=== PATIENT | male | born 1990 | race Caucasian/White ===

== ENCOUNTER 2023-12-04 07:34 | Inpatient (IN) | payer MEDICAID, SELFPAY ==
--- NOTE | 2023-12-04 07:51 | W.ED.PSYCHS ---
Documented by User: Mckinley Oneal MD 12/04/23 10:33 HPI - Psych General: Chief Complaint: Psychiatric Symptoms Stated Complaint: MHE Time Seen by Provider: 12/04/23 07:42 Related Data Home Medications Medication Instructions Recorded Confirmed No Known Home Medications 12/04/23 12/04/23 Allergies Allergy/AdvReac Type Severity Reaction Status Date / Time No Known Allergies Allergy Verified 12/04/23 19:51 Review of Systems Const: Denies: fever(s), chills, body aches or change in appetite Eyes: Denies: blurry vision or eye discomfort ENMT: Denies: throat pain or dental pain Card: Denies: chest pain Resp: Denies: dyspnea GI: Denies: abdominal pain, nausea, vomiting or diarrhea Musc: Denies: neck pain or back pain Skin/Breast: Denies: rash Neuro: Denies: headache(s) Psych: Reports: paranoia Physical Exam Const: COMMON NORMALS: patient oriented x3 and healthy appearing GENERAL APPEARANCE: disheveled HENMT: COMMON NORMALS: normocephalic and atraumatic HEAD & SCALP: normocephalic and atraumatic Eye: COMMON NORMALS: Equal, round and reactive pupils present and EOMs intact bilaterally PUPIL: Yes Equal, round and reactive pupils present Neck/C-Spine: COMMON NORMALS: full ROM and supple Chest: COMMONS NORMALS: normal inspection of the chest Resp: COMMON NORMALS: normal respiratory effort, No retractions, No use of accessory muscles and clear to auscultation bilaterally AUSCULTATION: clear to auscultation bilaterally Cardio: COMMON NORMALS: regular rate, regular rhythm and No murmurs present (Cardio) RATE: regular rate RHYTHM: regular rhythm GI: COMMON NORMALS: Normal to inspection, nondistended, normoactive bowel sounds present, Soft to palpation, non-tender and no masses PALPATION: Yes Soft to palpation Extremity: COMMON NORMALS: normal to inspection and full ROM Neuro: COMMON NORMALS: patient oriented x3, moves all extremities and no focal motor deficits Psych: ATTITUDE: Yes paranoid THOUGHT PROCESS: disorganized THOUGHT CONTENT: Yes Hallucination(s) present Skin: COMMON NORMALS: no rashes or lesions noted and no wounds GENERAL SKIN EXAM: no rashes or lesions noted Course Vital Signs: Vital signs: Vital Signs Temperature 97.5 F L 12/04/23 21:31 Pulse Rate 103 H 12/04/23 21:31 Respiratory Rate 18 12/04/23 21:31 Blood Pressure 124/94 12/04/23 21:31 Pulse Oximetry 99 12/04/23 21:31 Oxygen Delivery Me thod Room Air 12/04/23 20:05 MDM - Psych Medical Records I reviewed the patient's medical records. Lab Data I reviewed the patient's lab results. 12/04/23 10:35 12/04/23 10:35 Laboratory Results WBC 13.69 10^3/uL (3.29-11.43) H 12/04/23 10:35 RBC 4.43 10^6/uL (3.85-5.65) 12/04/23 10:35 Hgb 14.10 g/dL (11.27-16.99) 12/04/23 10:35 Hct 42.5 % (37-53) 12/04/23 10:35 MCV 95.9 fl (82-101) 12/04/23 10:35 MCH 31.8 pg (27-33) 12/04/23 10:35 MCHC 33.2 g/dL (30-55) 12/04/23 10:35 RDW 12.9 % (12.1-15.1) 12/04/23 10:35 Plt Count 242 10^3/cmm (157-399) 12/04/23 10:35 MPV 10.0 fL (7.4-10.4) 12/04/23 10:35 Neut % (Auto) 84.6 % 12/04/23 10:35 Lymph % (Auto) 8.6 % 12/04/23 10:35 Barrow % (Auto) 5.9 % 12/04/23 10:35 Eos % (Auto) 0.0 % 12/04/23 10:35 Baso % (Auto) 0.2 % 12/04/23 10:35 Neut # (Auto) 11.58 10^3/uL (1.8-7.7) H 12/04/23 10:35 Lymph # (Auto) 1.2 10^3/uL (0.8-4.8) 12/04/23 10:35 Barrow # (Auto) 0.8 10^3/uL (0.2-0.9) 12/04/23 10:35 Eos # (Auto) 0.0 10^3/uL (0.0-0.8) 12/04/23 10:35 Baso # (Auto) 0.0 10^3/uL (0.0-0.1) 12/04/23 10:35 Nucleated RBC % (auto) 0 % 12/04/23 10:35 Nucleated RBCs # 0.0 /100WBC 12/04/23 10:35 Sodium 142 mmol/L (136-145) 12/04/23 10:35 Potassium 3.4 mmol/L (3.5-5.1) L 12/04/23 10:35 Chloride 105 mmol/L (98-107) 12/04/23 10:35 Carbon Dioxide 22 mmol/L (22-29) 12/04/23 10:35 Anion Gap 18.4 (5-19) 12/04/23 10:35 BUN 18 mg/dL (6-20) 12/04/23 10:35 Creatinine 0.9 mg/dL (0.7-1.2) 12/04/23 10:35 GFR Calculation 96.6 mL/min (90-130) 12/04/23 10:35 Glucose 114 mg/dL (65-115) 12/04/23 10:35 Calculated Osmolality 297 mOsm/kg (285-295) H 12/04/23 10:35 Calcium 8.8 mg/dL (8.5-10.5) 12/04/23 10:35 Total Bilirubin 0.4 mg/dL (0.15-1.2) 12/04/23 10:35 AST 32 U/L (0-40) 12/04/23 10:35 ALT 15 U/L (0-41) 12/04/23 10:35 Alkaline Phosphatase 97 U/L (40-130) 12/04/23 10:35 Total Protein 6.7 g/dL (6.6-8.7) 12/04/23 10:35 Albumin 4.4 g/dL (3.5-5.2) 12/04/23 10:35 Globulin 2.3 g/dL (1.3-4.6) 12/04/23 10:35 Salicylates < 0.3 mg/dL (3-10) L 12/04/23 10:35 Urine Opiates Screen Positive ng/mL (Negative) H 12/04/23 10:58 Acetaminophen < 5.0 ug/mL (10-30) L 12/04/23 10:35 Ur Barbiturates Screen Negative ng/mL (Negative) 12/04/23 10:58 Ur Phencyclidine Scrn Negative ng/mL (Negative) 12/04/23 10:58 Ur Amphetamines Screen Positive ng/mL (Negative) H 12/04/23 10:58 U Benzodiazepines Scrn Negative ng/mL (Negative) 12/04/23 10:58 Urine Cocaine Screen Negative ng/mL (Negative) 12/04/23 10:58 U Marijuana (THC) Screen Positive ng/mL (Negative) H 12/04/23 10:58 Ethyl Alcohol < 10 mg/dL (0-10) 12/04/23 10:35 Influenza Type A Ag negative (Negative) 12/04/23 09:49 Influenza Type B Ag negative (Negative) 12/04/23 09:49 RSV Antigen Negative (Negative) 12/04/23 09:49 SARS-CoV-2 Ag (Rapid) negative (Negative) 12/04/23 09:49 No radiology studies performed this visit EKG Data EKG 1: I personally reviewed and interpreted this EKG as follows: EKG interpretation date: 12/04/23 EKG interpretation time: 09:51 Interpretation: nsr hr [address] or t wave qrs 95 qtc 443 Discharge Plan Discharge Patient Disposition: Admitted As Inpatient Admit Provider: Uziel Batista Clinical Impression: Acute psychosis Condition: Stable Coding Level of Care Code ED Patcher Wood Welder for Chg Fwd Documented by User: Lazaro Foreman DO 12/05/23 01:28 HPI - Psych General: Chief Complaint: Psychiatric Symptoms Stated Complaint: MHE Time Seen by Provider: 12/04/23 07:42 History of Present Illness: 33-year-old male patient exhibiting symptoms of psychosis on arrival. He is hallucinating, agitated, delusional. He required medication for agitation. Related Data Home Medications Medication Instructions Recorded Confirmed No Known Home Medications 12/04/23 12/04/23 Allergies Allergy/AdvReac Type Severity Reaction Status Date / Time No Known Allergies Allergy Verified 12/04/23 19:51 Course Vital Signs: Vital signs: Vital Signs Temperature 97.5 F L 12/04/23 21:31 Pulse Rate 103 H 12/04/23 21:31 Respiratory Rate 18 12/04/23 21:31 Blood Pressure 124/94 12/04/23 21:31 Pulse Oximetry 99 12/04/23 21:31 Oxygen Delivery Me thod Room Air 12/04/23 20:05 MDM - Psych Medical Decision Making 33-year-old male checked out at shift change. Medically he is quite stable. He presents with psychosis, agitation. He has been placed under 96-hour hold by the previous physician due to psychosis and agitation. Medically he has been stable. His drug screen is positive for amphetamines and marijuana. Alcohol level is less than 10. Since initial injections for agitation here, he has been calm and cooperative. He has been here 11.5 hours without further need for repeat medication for agitation. Lab Data 12/04/23 10:35 12/04/23 10:35 Laboratory Results WBC 13.69 10^3/uL (3.29-11.43) H 12/04/23 10:35 RBC 4.43 10^6/uL (3.85-5.65) 12/04/23 10:35 Hgb 14.10 g/dL (11.27-16.99) 12/04/23 10:35 Hct 42.5 % (37-53) 12/04/23 10:35 MCV 95.9 fl (82-101) 12/04/23 10:35 MCH 31.8 pg (27-33) 12/04/23 10:35 MCHC 33.2 g/dL (30-55) 12/04/23 10:35 RDW 12.9 % (12.1-15.1) 12/04/23 10:35 Plt Count 242 10^3/cmm (157-399) 12/04/23 10:35 MPV 10.0 fL (7.4-10.4) 12/04/23 10:35 Neut % (Auto) 84.6 % 12/04/23 10:35 Lymph % (Auto) 8.6 % 12/04/23 10:35 Barrow % (Auto) 5.9 % 12/04/23 10:35 Eos % (Auto) 0.0 % 12/04/23 10:35 Baso % (Auto) 0.2 % 12/04/23 10:35 Neut # (Auto) 11.58 10^3/uL (1.8-7.7) H 12/04/23 10:35 Lymph # (Auto) 1.2 10^3/uL (0.8-4.8) 12/04/23 10:35 Barrow # (Auto) 0.8 10^3/uL (0.2-0.9) 12/04/23 10:35 Eos # (Auto) 0.0 10^3/uL (0.0-0.8) 12/04/23 10:35 Baso # (Auto) 0.0 10^3/uL (0.0-0.1) 12/04/23 10:35 Nucleated RBC % (auto) 0 % 12/04/23 10:35 Nucleated RBCs # 0.0 /100WBC 12/04/23 10:35 Sodium 142 mmol/L (136-145) 12/04/23 10:35 Potassium 3.4 mmol/L (3.5-5.1) L 12/04/23 10:35 Chloride 105 mmol/L (98-107) 12/04/23 10:35 Carbon Dioxide 22 mmol/L (22-29) 12/04/23 10:35 Anion Gap 18.4 (5-19) 12/04/23 10:35 BUN 18 mg/dL (6-20) 12/04/23 10:35 Creatinine 0.9 mg/dL (0.7-1.2) 12/04/23 10:35 GFR Calculation 96.6 mL/min (90-130) 12/04/23 10:35 Glucose 114 mg/dL (65-115) 12/04/23 10:35 Calculated Osmolality 297 mOsm/kg (285-295) H 12/04/23 10:35 Calcium 8.8 mg/dL (8.5-10.5) 12/04/23 10:35 Total Bilirubin 0.4 mg/dL (0.15-1.2) 12/04/23 10:35 AST 32 U/L (0-40) 12/04/23 10:35 ALT 15 U/L (0-41) 12/04/23 10:35 Alkaline Phosphatase 97 U/L (40-130) 12/04/23 10:35 Total Protein 6.7 g/dL (6.6-8.7) 12/04/23 10:35 Albumin 4.4 g/dL (3.5-5.2) 12/04/23 10:35 Globulin 2.3 g/dL (1.3-4.6) 12/04/23 10:35 Salicylates < 0.3 mg/dL (3-10) L 12/04/23 10:35 Urine Opiates Screen Positive ng/mL (Negative) H 12/04/23 10:58 Acetaminophen < 5.0 ug/mL (10-30) L 12/04/23 10:35 Ur Barbiturates Screen Negative ng/mL (Negative) 12/04/23 10:58 Ur Phencyclidine Scrn Negative ng/mL (Negative) 12/04/23 10:58 Ur Amphetamines Screen Positive ng/mL (Negative) H 12/04/23 10:58 U Benzodiazepines Scrn Negative ng/mL (Negative) 12/04/23 10:58 Urine Cocaine Screen Negative ng/mL (Negative) 12/04/23 10:58 U Marijuana (THC) Screen Positive ng/mL (Negative) H 12/04/23 10:58 Ethyl Alcohol < 10 mg/dL (0-10) 12/04/23 10:35 Influenza Type A Ag negative (Negative) 12/04/23 09:49 Influenza Type B Ag negative (Negative) 12/04/23 09:49 RSV Antigen Negative (Negative) 12/04/23 09:49 SARS-CoV-2 Ag (Rapid) negative (Negative) 12/04/23 09:49 Discharge Plan Discharge Patient Disposition: Admitted As Inpatient Admit Provider: Uziel Batista Clinical Impression: Acute psychosis Condition: Stable Coding Level of Care Code ED Patcher Wood Welder for Daniel Perez
[2023-12-04] MEDS: diphenhydrAMINE 50 mg/mL SDV 1mL IM (08:13)
[2023-12-04] MEDS: LORazepam 2 mg/mL INJ 1 mL IM (08:14)
[2023-12-04] MEDS: haloperidol inj 5 mg/mL INJ 1 mL IM (08:14)
--- NOTE | 2023-12-04 09:51 | ECG_ITS ---
[facility] Test Date: 2023-12-04 Pat Name: Francisco Engel Department: Room: Gender: Male Art Manager: : 1990 Requested By: Mckinley Oneal Order Number: [id number] Betsy MD: Andre Sosa M.D. Measurements Intervals Center Rate: 83 P: 78 FL: 132 QRS: 87 QRSD: 95 T: 71 QT: 403 QTc: 475 Interpretive Statements SINUS RHYTHM No previous ECG available for comparison Electronically Signed On 12-04-2023 14:28:31 CDT by Andre Sosa M.D. [id number]
[2023-12-04] MEDS: ketamine 100 mg/mL Inj 5 mL 300 MG IM (10:10)
[2023-12-04 10:43] LABS: Basophils % 0.2 %; Hematocrit 42.5 % (37-53); Lymphocytes # 1.2 10^3/uL (0.8-4.8); Lymphocytes % 8.6 %; Mean Corpuscular HGB Conc 33.2 g/dL (30-55); Mean Corpuscular Hemoglobin 31.8 pg (27-33); Mean Corpuscular Volume 95.9 fl (82-101); Monocytes # 0.8 10^3/uL (0.2-0.9); Monocytes % 5.9 %; Neutrophils # 11.58 10^3/uL (1.8-7.7); Neutrophils % 84.6 %; Nucleated Red Blood Cells % 0 %; Platelet Count 242 10^3/cmm (157-399); Red Blood Count 4.43 10^6/uL (3.85-5.65); Red Cell Distribution Width 12.9 % (12.1-15.1); White Blood Count 13.69 10^3/uL (3.29-11.43)
[2023-12-04 10:58] LABS: Alanine Aminotransferase 15 U/L (0-41); Albumin Level 4.4 g/dL (3.5-5.2); Alkaline Phosphatase 97 U/L (40-130); Anion Gap 18.4 (5-19); Aspartate Amino Transferase 32 U/L (0-40); Blood Urea Nitrogen 18 mg/dL (6-20); Calcium 8.8 mg/dL (8.5-10.5); Carbon Dioxide 22 mmol/L (22-29); Chloride 105 mmol/L (98-107); Globulin 2.3 g/dL (1.3-4.6); Glomerular Filtration Rate 96.6 mL/min (90-130); Glucose 114 mg/dL (65-115); Osmolality Calculated 297 mOsm/kg (285-295); Potassium 3.4 mmol/L (3.5-5.1); Sodium 142 mmol/L (136-145); Total Bilirubin 0.4 mg/dL (0.15-1.2); Total Protein 6.7 g/dL (6.6-8.7)
[2023-12-04 11:04] LABS: Acetaminophen < 5.0 ug/mL (10-30); Alcohol Level < 10 mg/dL (0-10); Salicylate < 0.3 mg/dL (3-10)
[2023-12-04 11:28] LABS: Amphetamines Screen Urine Positive (Negative); Barbiturates Screen Urine Negative (Negative); Benzodiazepines Screen Urine Negative (Negative); Cocaine Screen Urine Negative (Negative); Opiate Screen Urine Positive (Negative); PCP Screen Urine Negative (Negative); THC Screen Urine Positive (Negative)
[2023-12-04 11:35] LABS: Influenza A by IFA negative (Negative); Influenza B by IFA negative (Negative)
[2023-12-04 11:36] LABS: SARS Covid-2 Antigen negative (Negative)
[2023-12-04 11:40] LABS: RSV Transfer Patient (ED) Negative (Negative)
[2023-12-04 16:00] VITALS: PULSE 92; RESP 17; O2SAT 100
[2023-12-04 19:28] VITALS: BP 116/87; PULSE 91; RESP 15; O2SAT 98
[2023-12-04 20:03] VITALS: BP 127/94; PULSE 103; RESP 18; TEMP 36.4; O2SAT 99
[2023-12-04 20:05] VITALS: BMI 21.3
[2023-12-04 21:31] VITALS: BP 124/94; PULSE 103; RESP 18; TEMP 36.4; O2SAT 99
[2023-12-05 06:00] VITALS: BP 123/78; PULSE 60; RESP 17; TEMP 37; O2SAT 99
[2023-12-05] MEDS: OLANZapine 5 mg ODT PO ×2 (08:07→16:44)
[2023-12-05] MEDS: ibuprofen 600 mg Tablet PO (08:08)
[2023-12-05] MEDS: nicotine 2 mg Gum BUCCAL (08:20)
--- NOTE | 2023-12-05 09:39 | PC.NURSE ---
During morning shift assessment, patient reports left knee pain caused by falling on the ground while running prior to being brought into the hospital. Patient rates pain 5/10. Area has abrasion. No active bleeding, no swelling. Patient said that what happened was that he did meth and he thinks it was mixed with hallucinogens making him paranoid. Patient denies paranoia at this time. Patient denies Si, HI, AVH, and depression. Patient reports anxiety 5/10. Patient said that he always has anxiety, I am an anxious person. Patient says he takes clonazepam 2mg QID for anxiety.
[2023-12-05 14:00] VITALS: BP 129/81; PULSE 70; RESP 16; TEMP 36.8; O2SAT 99
--- NOTE | 2023-12-05 16:55 | P.NPUHP_ITS ---
Providers/Chief Complaint 2 Admitting Physician: Uziel Batista MD Chief Complaint: [facility] NPU History of Present Illness Francisco Engel is a 33 year old male with 1 previous psychiatric admission to [facility] and 2021 who presented to the emergency department at [facility] with complaints of hallucinations and increased agitation. The patient was admitted to the neuropsychiatric unit for further evaluation and treatment. The patient had reported that on the day of admission he had been at his current home of residence in [place] for the past year. He states that he had busted out a line of methamphetamine and reports that after he had taken the methamphetamine intranasally, he had reported feeling unusual. He states that the people around his home had actually placed hallucinogens in the methamphetamine and stated that he was fearful that they were trying to kill him. He reports that he jumped out of his bathroom window and escaped and states that he was taken to an emergency department in [facility] but reports that he did not have his please and fear of danger alleviated there as he was apparently discharged from the emergency department there without a mental health evaluation. The patient reports that eventually his uncle had picked him up and took him to [facility] emergency department for further evaluation and treatment. He reports that he had been paranoid and reports that he has been having increased paranoid thoughts and auditory hallucinations in the past. He reports continued use of methamphetamine and reports having used IV methamphetamine 2 days ago. He had reported that he feels as if others are trying to sabotage him and states that he has felt fearful for his life. He denies this currently stating that he feels much better having slept overnight. He had endorsed a past history of depression after withdrawing off of methamphetamine as well. He reports no other use of illicit substances nor does he endorse any alcohol use currently. He had reported the longest period of sobriety off of methamphetamine was approximately 1-1/2 years in 2019. He reports that his current living situation in [place] with a friend has been going on for approximately a year after previously being homeless. He reports that he has struggled with maintaining sobriety continues to use methamphetamine despite adverse consequences. Inpatient psychiatric history: He reports 1 previous inpatient psychiatric hospitalization at [facility] in 2021 secondary to depression and methamphetamine use. Outpatient psychiatric history: None reported currently. Substance abuse history: He had reported a past history of fentanyl use but reports no opiate use in many months. He had reported no history of alcohol use. He reports having used marijuana beginning at a young age and reports using methamphetamine since adolescence. He reports intranasal and IV drug use. He reports having been in [facility] in [place] in 2012 for substance use. Medical history: None reported Surgical history: None Allergies: No known drug allergies Current medications: None Legal history: None reported Family psychiatric history: Alcoholism in father Social history: Patient was born in [facility] and raised by his biological parents in an intact family until his mother had suddenly due to heart disease when the patient was 10, he is the youngest of 3 siblings. He reports having graduated high school in [place]. He reports that he went straight to work after his high school education and states that he has never been and has no children. He had reported a loss of jobs and struggles with employment secondary to his substance use. He currently lives with a friend in [facility] although he reports that after this hospitalization he will be living with family members instead. His father from lymphoma in 2018. He had denied any history of sexual physical or emotional abuse. Meds NPU Home Medications Medication Instructions Recorded Confirmed Last Taken Type No Known Home Medications 12/04/23 12/04/23 Unknown History Allergies Allergy/AdvReac Type Severity Reaction Status Date / Time No Known Allergies Allergy Verified 12/04/23 19:51 Mental Status Exam 2 MSE Comments: Is a casually dressed white male who appeared somewhat hypervigilant with some hyperkinetic movements as he appeared at times to be twitchy. His speech was saccadic in rate with slight periods of elevated and increased rate followed by slower rate and normal volume. There was no evidence of any abnormal involuntary tics and there was evidence of mild increase in psychomotor agitation. His mood was described as better. His affect appeared euthymic currently, his thought process was linear logical and goal-directed. His thought content showed no evidence of active homicidal or suicidal ideation. He had endorsed having paranoid ideation and distrust of others but stated that he was no longer feeling that way. He did not appear to be responding to internal stimuli. There was no clear evidence of delusional thinking currently. He was alert and oriented to person place time and situation. His recent remote memory appeared grossly intact. His insight is limited. His judgment was poor. His impulse control appeared limited as well. Vitals/I&O/Wt Last Vital Signs Temp 98.3 F 12/05/23 14:00 Pulse 70 12/05/23 14:00 Resp 16 12/05/23 14:00 BP 129/81 12/05/23 14:00 Pulse Ox 99 12/05/23 14:00 O2 Del Method Room Air 12/04/23 20:05 Weight last 48 hrs Weight 60.056 kg Data NPU 12/04/23 10:35 12/04/23 10:35 A&P Assessment and plan (1) Acute psychosis: (2) Methamphetamine abuse: Plan 43-year-old male admitted involuntarily with increased paranoia and psychosis appearing to be showing evidence of improvement already in last 12 hours here. He was agreeable to further medical evaluation and potential testing for hepatitis and other potentially transmitted diseases through IV drug use. #1.? Engage patient in individual milieu and group therapy. #2?? Recommend sober living treatment at the highest level of care to which the patient is willing to commit #3??? Prn zyprexa if needed for agitation. Check Hepatitis Panel, HIV, #4?? TO-15 minute checks #5?? Will attempt to gather collateral information ? Involuntary Hold Information 2 96 Hour Hold: 96 Hour Involuntary Admission: Yes Attestations NPU 2 Medical Necessity Statement*: Inpatient hospitalization is medically necessary and deemed to ?be ?the clinically appropriate intervention ?at this time.? We will monitor/initiate medications and make changes as indicated.? The patient will be in the hospital for over 2 midnights.? The patient?s likely length of stay 3-4 days. Coding Level of Care Code Acute Code for Chg Fwd Diagnoses Acute psychosis F23 Methamphetamine abuse F15.10
[2023-12-05 18:42] LABS: HIV 1 & 2 Antibody Non-Reactive (Non-Reactiv); HIV 1 & 2 Antigen Non-Reactive (Non-Reactiv)
[2023-12-05 19:21] VITALS: BP 113/77; PULSE 66; RESP 18; TEMP 36.8; O2SAT 100
[2023-12-05 21:19] LABS: Hepatitis B Core AB, Total Non-Reactive (Nonreactive); Hepatitis B Surface AB 9.4 (11.5-1000); Hepatitis B Surface Antigen Non-Reactive (Nonreactive); Hepatitis C Virus Antibody Reactive (Nonreactive)
[2023-12-05] MEDS: trazodone 50 mg Tablet PO (21:42)
[2023-12-05] MEDS: hyDROXYzine 25 mg Capsule 50 MG PO (21:42)
[2023-12-06 06:00] VITALS: BP 126/77; PULSE 56; RESP 17; TEMP 36.8; O2SAT 100
[2023-12-06] MEDS: nicotine 2 mg Gum BUCCAL (07:25)
[2023-12-06] MEDS: ibuprofen 600 mg Tablet PO (08:54)
[2023-12-06] MEDS: hyDROXYzine 25 mg Capsule 50 MG PO (08:55)
--- NOTE | 2023-12-06 10:50 | P.NPUDS_ITS ---
Diagnoses at Discharge Discharge Diagnosis (1) Acute psychosis: Status: Acute (2) Methamphetamine abuse: Status: Acute Reason for Visit Reason for Visit: [facility] Brief History: History of Present Illness Francisco Engel is a 33 year old male with 1 previous psychiatric admission to [facility] and 2021 who presented to the emergency department at [facility] with complaints of hallucinations and increased agitation. The patient was admitted to the neuropsychiatric unit for further evaluation and treatment. The patient had reported that on the day of admission he had been at his current home of residence in [place] for the past year. He states that he had busted out a line of methamphetamine and reports that after he had taken the methamphetamine intranasally, he had reported feeling unusual. He states that the people around his home had actually placed hallucinogens in the methamphetamine and stated that he was fearful that they were trying to kill him. He reports that he jumped out of his bathroom window and escaped and states that he was taken to an emergency department in [facility] but reports that he did not have his please and fear of danger alleviated there as he was apparently discharged from the emergency department there without a mental health evaluation. The patient reports that eventually his uncle had picked him up and took him to [facility] emergency department for further evaluation and treatment. He reports that he had been paranoid and reports that he has been having increased paranoid thoughts and auditory hallucinations in the past. He reports continued use of methamphetamine and reports having used IV methamphetamine 2 days ago. He had reported that he feels as if others are trying to sabotage him and states that he has felt fearful for his life. He denies this currently stating that he feels much better having slept overnight. He had endorsed a past history of depression after withdrawing off of methamphetamine as well. He reports no other use of illicit substances nor does he endorse any alcohol use currently. He had reported the longest period of sob riety off of methamphetamine was approximately 1-1/2 years in 2019. He reports that his current living situation in [place] with a friend has been going on for approximately a year after previously being homeless. He reports that he has struggled with maintaining sobriety continues to use methamphetamine despite adverse consequences. Inpatient psychiatric history: He reports 1 previous inpatient psychiatric hospitalization at [facility] in 2021 secondary to depression and methamphetamine use. Outpatient psychiatric history: None reported currently. Substance abuse history: He had reported a past history of fentanyl use but reports no opiate use in many months. He had reported no history of alcohol use. He reports having used marijuana beginning at a young age and reports using methamphetamine since adolescence. He reports intranasal and IV drug use. He reports having been in [facility] [place] in 2012 for substance use. Medical history: None reported Surgical history: None Allergies: No known drug allergies Current medications: None Legal history: None reported Family psychiatric history: Alcoholism in father Social history: Patient was born in [facility] and raised by his biological parents in an intact family until his mother had suddenly due to heart disease when the patient was 10, he is the youngest of 3 siblings. He reports having graduated high school in [place]. He reports that he went straight to work after his high school education and states that he has never been and has no children. He had reported a loss of jobs and struggles with employment secondary to his substance use. He currently lives with a friend in [facility] although he reports that after this hospitalization he will be living with family members instead. His father from lymphoma in 2018. He had denied any history of sexual physical or emotional abuse. Hospital Course Hospital Course During the hospitalization, the patient had routine laboratory studies which were within normal limits except for a few outliers.? Additionally, there was a general medical evaluation which was also within normal limits and revealed no new acute processes.? At the time of discharge, lethality was denied and psychosis was resolving.? Mood and anxiety were well managed.? The patient endorsed a plan to avoid all drugs of abuse and follow up with the aftercare recommendations of the treatment team.? The patient was evaluated and deemed to be absent credible lethality and had achieved the maximum benefit from an inpatient hospitalization, and so was discharged. ?Patient had expressed desire to go to [facility] to stay where he would be in a specialized program to continue an attempt to remain abstinent off of the use of methamphetamines. Patient was also given information regarding [facility] a digital substance abuse therapy treatment program that could be done from his android phone. Involuntary Hold Information 96 Hour Hold: 96 Hour Involuntary Admission: Yes Mental Status Exam MSE Comments: Is a casually dressed white male who appeared somewhat hypervigilant with no hyperkinetic movements appreciated today. His speech was normal in rate, rhythm and volume. There was no evidence of any abnormal involuntary tics and there was evidence of mild increase in psychomotor agitation. His mood was described as better. His affect appeared euthymic. His thought process was linear, logical and goal-directed. His thought content showed no evidence of active homicidal or suicidal ideation. No evidence of delusional thinking and he did not appear to be responding to internal stimuli. He was alert and oriented to person place time and situation. His recent and remote memory appeared grossly intact. His insight is limited. His judgment was improving. His impulse control appeared fair at the time of discharge. Discharge Data Studies Completed and Pending: Pending at discharge Category Date Time Status Hepatitis C RNA V iral Load Qnt Rout ine Lab 12/05/23 22:02 Received Laboratory Results WBC 13.69 10^3/uL (3. 29-11.43) H 12/04/23 10:35 RBC 4.43 10^6/uL (3.8 5-5.65) 12/04/23 10:35 Hgb 14.10 g/dL (11.27 -16.99) 12/04/23 10:35 Hct 42.5 % (37-53) 12/04/23 10:35 MCV 95.9 fl (82-101) 12/04/23 10:35 MCH 31.8 pg (27-33) 12/04/23 10:35 MCHC 33.2 g/dL (30-55) 12/04/23 10:35 RDW 12.9 % (12.1-15.1 ) 12/04/23 10:35 Plt Count 242 10^3/cmm (157 -399) 12/04/23 10:35 MPV 10.0 fL (7.4-10.4 ) 12/04/23 10:35 Neut % (Auto) 84.6 % 12/04/23 10:35 Lymph % (Auto) 8.6 % 12/04/23 10:35 Liberty % (Auto) 5.9 % 12/04/23 10:35 Eos % (Auto) 0.0 % 12/04/23 10:35 Baso % (Auto) 0.2 % 12/04/23 10:35 Neut # (Auto) 11.58 10^3/uL (1. 8-7.7) H 12/04/23 10:35 Lymph # (Auto) 1.2 10^3/uL (0.8- 4.8) 12/04/23 10:35 Liberty # (Auto) 0.8 10^3/uL (0.2- 0.9) 12/04/23 10:35 Eos # (Auto) 0.0 10^3/uL (0.0- 0.8) 12/04/23 10:35 Baso # (Auto) 0.0 10^3/uL (0.0- 0.1) 12/04/23 10:35 Nucleated RBC % (a uto) 0 % 12/04/23 10:35 Nucleated RBCs # 0.0 /100WBC 12/04/23 10:35 Sodium 142 mmol/L (136-1 45) 12/04/23 10:35 Potassium 3.4 mmol/L (3.5-5 .1) L 12/04/23 10:35 Chloride 105 mmol/L (98-10 7) 12/04/23 10:35 Carbon Dioxide 22 mmol/L (22-29) 12/04/23 10:35 Anion Gap 18.4 (5-19) 12/04/23 10:35 BUN 18 mg/dL (6-20) 12/04/23 10:35 Creatinine 0.9 mg/dL (0.7-1. 2) 12/04/23 10:35 GFR Calculation 96.6 mL/min (90-1 30) 12/04/23 10:35 Glucose 114 mg/dL (65-115 ) 12/04/23 10:35 Calculated Osmolal ity 297 mOsm/kg (285- 295) H 12/04/23 10:35 Calcium 8.8 mg/dL (8.5-10 .5) 12/04/23 10:35 Total Bilirubin 0.4 mg/dL (0.15-1 .2) 12/04/23 10:35 AST 32 U/L (0-40) 12/04/23 10:35 ALT 15 U/L (0-41) 12/04/23 10:35 Alkaline Phosphata se 97 U/L (40-130) 12/04/23 10:35 Total Protein 6.7 g/dL (6.6-8.7 ) 12/04/23 10:35 Albumin 4.4 g/dL (3.5-5.2 ) 12/04/23 10:35 Globulin 2.3 g/dL (1.3-4.6 ) 12/04/23 10:35 Salicylates < 0.3 mg/dL (3-10 ) L 12/04/23 10:35 Urine Opiates Scre en Positive ng/mL (N egative) H 12/04/23 10:58 Acetaminophen < 5.0 ug/mL (10-3 0) L 12/04/23 10:35 Ur Barbiturates Sc reen Negative ng/mL (N egative) 12/04/23 10:58 Ur Phencyclidine S crn Negative ng/mL (N egative) 12/04/23 10:58 Ur Amphetamines Sc reen Positive ng/mL (N egative) H 12/04/23 10:58 U Benzodiazepines Scrn Negative ng/mL (N egative) 12/04/23 10:58 Urine Cocaine Scre en Negative ng/mL (N egative) 12/04/23 10:58 U Marijuana (THC) Screen Positive ng/mL (N egative) H 12/04/23 10:58 Ethyl Alcohol < 10 mg/dL (0-10) 12/04/23 10:35 Hep Bs Antigen Non-reactive (No nreactive) 12/04/23 20:35 Hep Bs Antibody 9.4 (11.5-1000) L 12/04/23 20:35 Hep B Core Total A b Non-reactive (No nreactive) 12/04/23 20:35 Hepatitis C Antibo dy Reactive (Nonrea ctive) H 12/04/23 20:35 HIV 1&2 Ab & HIV 1 Ag Non-reactive (No n-Reactiv) 12/04/23 20:35 HIV 1&2 Antibody Non-reactive (No n-Reactiv) 12/04/23 20:35 Influenza Type A A g negative (Negati ve) 12/04/23 09:49 Influenza Type B A g negative (Negati ve) 12/04/23 09:49 RSV Antigen Negative (Negati ve) 12/04/23 09:49 SARS-CoV-2 Ag (Rap id) negative (Negati ve) 12/04/23 09:49 Vitals: Last Vital Signs Temp 98.2 F 12/06/23 06:00 Pulse 56 L 09/03/24 06:00 Resp 17 12/06/23 06:00 BP 126/77 12/06/23 06:00 Pulse Ox 100 12/06/23 06:00 O2 Del Method Room Air 12/06/23 06:00 Discharge Plan Discharge Patient Disposition: Home Condition: Stable Prescriptions: No Action No Known Home Medications Discharge Orders: Discharge Order (Routine); Ordered 12/06/23 Ordered By: Uziel Batista Referrals: [facility] [Other] - 4-7 days (Join with rewards for recovery.) [facility] [Other] - 4-7 days Denise Carlisle [facility] [Other] - 12/08/23 8:30 am Discharge Diet: Usual diet Discharge Activity: Resume usual activity Patient Instructions: Methamphetamine Abuse, Brief Psychotic Disorder (DC), Methamphetamine Use Disorder (DC), Opioid Safety Discharge Attestations NPU Time Spent in Discharge Care*: less than 30 min Specific Discharge Activities: Specific discharge activities: educating patient, discussing with rehabilitation caseworker/social workers/dc planners and documenting/other paperwork Coding Level of Care Code Acute Code for Chg Fwd Diagnoses Acute psychosis F23 Methamphetamine abuse F15.10
[2023-12-06 11:12] VITALS: BP 126/77; PULSE 56; RESP 17; TEMP 36.8; O2SAT 100
[2023-12-06] MEDS: OLANZapine 5 mg ODT PO (12:18)
[2023-12-08 14:27] LABS: HEP C RNA Viral Load Quant <1.18 NOT DETECTED Log IU/mL (NOT DETECTED); HEP C RNA Viral Load Quant <15 NOT DETECTED IU/mL (NOT DETECTED)
== END 2023-12-06 12:43 | disposition home or self-care (01) | DRG 885 ==
LOC: ER 19:03 → NP 19:14
PROVIDERS: Emergency Medicine; Admitting Provider Psychiatry & Neurology Psychiatry; Emergency Provider Emergency Medicine; Visit Provider Psychiatry & Neurology Psychiatry
DX: F23 Brief psychotic disorder (principal); Z11.52 Encounter for screening for COVID-19; Z81.1 Family history of alcohol abuse and dependence; F15.10 Other stimulant abuse, uncomplicated
CPT/HCPCS: 80053; 80306; 80307; 85025; 86705; 86706; 86803; 87340; 87426; 87522; 87804; 87806; 87899; 93005; 96372; 97165; 99285; J1200; J1630; J2060; J3490